=== PATIENT | female | born 1990 | race Caucasian/White ===

== ENCOUNTER 2017-05-17 17:18 | Emergency (ER) | payer SELFPAY ==
[~2017-05-17] VITALS: Ht 162.6 cm; Wt 61.2 kg
[2017-05-17] MEDS ORDERED: IV NORMAL SALINE 1000ML BAG 1,000 ML IV SCH (17:48)
--- NOTE | 2017-05-17 17:57 | PHYS DOC ---
Past Medical History Past Medical History: Other Additional Past Medical Histor: heroin abuse Past Surgical History: Other Additional Past Surgical Histo: "double hernia" repair as a baby Alcohol Use: None Drug Use: Heroin Social History Narrative: "clean for three months." Adult General Chief Complaint Chief Complaint: NAUSEA/VOMITING/DIARRHA HPI HPI Patient is a 27 year old female who presents with complaint of nausea, vomiting , and headache. Patient states that she has been having symptoms over the past 5 days after starting on Suboxone therapy. Patient has history of heroin abuse and has been off of heroin over the past month. The patient has been following with Dr. Contreras who started the patient on Suboxone therapy to continue therapy to refrain from heroin abuse. Patient states that she has not been tolerating this medication as it has been causing her to have numerous episodes of vomiting. Patient states she is unable to tolerate oral intake at this time due to her symptoms. Patient came to the emergency department for further treatment of her symptoms. Patient denies any localizing pain in her abdomen or chest at this time. Review of Systems Review of Systems Constitutional: Denies fever or chills [] Eyes: Denies change in visual acuity, redness, or eye pain [] HENT: Denies nasal congestion or sore throat [] Respiratory: Denies cough or shortness of breath [] Cardiovascular: Denies chest pain or edema [] GI: Nausea, vomiting, denies abdominal pain, bloody stools or diarrhea [] : Denies dysuria or hematuria [] Musculoskeletal: Denies back pain or joint pain [] Integument: Denies rash or skin lesions [] Neurologic: Headache, denies focal weakness or sensory changes [] Current Medications Current Medications Current Medications Medications (Trade) Dose Ordered Sig/Ramona Start Time Stop Time Status Last Admin Dose Admin Diphenhydramine HCl (Benadryl) 25 mg 1X ONCE 05/17/17 18:00 05/17/17 18:01 DC 05/17/17 18:10 25 MG Famotidine (Pepcid) 20 mg 1X ONCE 05/17/17 18:00 05/17/17 18:01 DC 05/17/17 18:10 20 MG Metoclopramide HCl (Reglan) 10 mg 1X ONCE 05/17/17 18:00 05/17/17 18:01 DC 05/17/17 18:10 10 MG Ondansetron HCl (Zofran) 4 mg 1X ONCE 05/17/17 18:00 05/17/17 18:01 DC 05/17/17 18:10 4 MG Sodium Chloride 1,000 ml @ 1,000 mls/hr Q1H 05/17/17 17:48 05/17/17 18:47 DC 05/17/17 18:09 1,000 MLS/HR Allergies Allergies Allergies Coded Allergies Type Severity Reaction Last Updated Verified No Known Drug Allergies 05/17/17 No Physical Exam Physical Exam Constitutional: Alert, afebrile, appears ill. [] HENT: Normocephalic, atraumatic, bilateral external ears normal, oropharynx dry , no oral exudates, nose normal. [] Eyes: PERRLA, EOMI, conjunctiva normal, no discharge. [] Neck: Normal range of motion, no tenderness, supple, no stridor. [] Cardiovascular:Heart rate regular rhythm, no murmur [] Lungs & Thorax: Bilateral breath sounds clear to auscultation [] Abdomen: Bowel sounds normal, soft, no tenderness, no masses, no pulsatile masses. [] Skin: Warm, dry, no erythema, no rash. [] Back: No tenderness, no CVA tenderness. [] Extremities: No tenderness, no cyanosis, no clubbing, ROM intact, no edema. [] Neurologic: Alert and oriented X 3, normal motor function, normal sensory function, no focal deficits noted. [] Current Patient Data Vital Signs Vital Signs Date Time Temp Pulse Resp B/P (MAP) Pulse Ox O2 Delivery O2 Flow Rate FiO2 05/17/17 18:17 56 18 102/58 (73) 98 Room Air 05/17/17 17:20 98.3 98.3 Lab Values Laboratory Tests Test 05/17/17 17:45 White Blood Count 8.3 x10^3/uL (4.0-11.0) Red Blood Count 4.45 x10^6/uL (3.50-5.40) Hemoglobin 14.0 g/dL (12.0-15.5) Hematocrit 41.2 % (36.0-47.0) Mean Corpuscular Volume 93 fL (79-100) Mean Corpuscular Hemoglobin 32 pg (25-35) Mean Corpuscular Hemoglobin Concent 34 g/dL (31-37) Red Cell Distribution Width 12.3 % (11.5-14.5) Platelet Count 245 x10^3/uL (140-400) Neutrophils (%) (Auto) 63 % (31-73) Lymphocytes (%) (Auto) 30 % (24-48) Monocytes (%) (Auto) 5 % (0-9) Eosinophils (%) (Auto) 2 % (0-3) Basophils (%) (Auto) 0 % (0-3) Neutrophils # (Auto) 5.2 x10^3uL (1.8-7.7) Lymphocytes # (Auto) 2.5 x10^3/uL (1.0-4.8) Monocytes # (Auto) 0.5 x10^3/uL (0.0-1.1) Eosinophils # (Auto) 0.1 x10^3/uL (0.0-0.7) Basophils # (Auto) 0.0 x10^3/uL (0.0-0.2) Urine Color Skylar Urine Clarity Clear Urine pH 5.5 Urine Specific [place] 1.020 Urine Protein Negative mg/dL (NEG-TRACE) Urine Glucose (UA) Negative mg/dL (NEG) Urine Ketones (Stick) 15 mg/dL (NEG) Urine Blood Moderate (NEG) Urine Nitrite Negative (NEG) Urine Bilirubin Small (NEG) Urine Urobilinogen Dipstick 0.2 mg/dL (0.2 mg/dL) Urine Leukocyte Esterase Trace (NEG) Urine RBC 1-2 /HPF (0-2) Urine WBC Occ /HPF (0-4) Urine Squamous Epithelial Cells Occ /LPF Urine Bacteria Few /HPF (0-FEW) Urine Mucus Mod /LPF Urine Test Negative (NEG) Sodium Level 139 mmol/L (136-145) Potassium Level 4.2 mmol/L (3.5-5.1) Chloride Level 101 mmol/L (98-107) Carbon Dioxide Level 29 mmol/L (21-32) Anion Gap 9 (6-14) Blood Urea Nitrogen 9 mg/dL (7-20) Creatinine 0.5 mg/dL (0.6-1.0) L Estimated GFR (Cockcroft-Gault) 149.1 BUN/Creatinine Ratio 18 (6-20) Glucose Level 91 mg/dL (70-99) Calcium Level 9.2 mg/dL (8.5-10.1) Total Bilirubin 0.4 mg/dL (0.2-1.0) Aspartate Amino Transferase (AST) 46 U/L (15-37) H Alanine Aminotransferase (ALT) 49 U/L (14-59) Alkaline Phosphatase 47 U/L (46-116) Total Protein 8.1 g/dL (6.4-8.2) Albumin 4.1 g/dL (3.4-5.0) Albumin/Globulin Ratio 1.0 (1.0-1.7) Lipase 75 U/L (73-393) Laboratory Tests 05/17/17 17:45 Laboratory Tests 05/17/17 17:45 EKG EKG Initial rhythm strip interpreted by me: Heart rate 77, sinus rhythm, no ectopy [ ] Radiology/Procedures Radiology/Procedures Not performed [] Course & Med Decision Making Course & Med Decision Making Pertinent Labs and Imaging studies reviewed. (See chart for details) The patient started on IV fluids, Zofran, Reglan, Pepcid, and Benadryl. On reevaluation, patient's symptoms have improved at this time. I spoke with patient's physician, Dr. Contreras, who stated that the patient to discontinue use of Suboxone at this time. The patient has an appointment with Dr. Contreras in 2 days. The patient was recommended to follow-up with Dr. Contreras as scheduled to discuss further treatment options. Advised return emergency department for any worsening symptoms. Patient voiced understanding and in agreement with treatment plan. Dragon Disclaimer Dragon Disclaimer This electronic medical record was generated, in whole or in part, using a voice recognition dictation system. Departure Departure Impression: Primary Impression: Nausea and vomiting Additional Impressions: Dehydration Adverse drug reaction Disposition: 01 HOME, SELF-CARE Condition: IMPROVED Patient Instructions: Dehydration, Adult, Drug Reaction, GI Intolerance, Nausea and Vomiting Additional Instructions: Follow-up with Dr. Contreras in 2 days as scheduled. You may discontinue use of Suboxone if you wish until you have followed up with Dr. Contreras. Return to the emergency department for any worsening symptoms. Scripts Famotidine (PEPCID) 20 Mg Tablet 20 MG PO BID, #30 TAB Prov: GUERRERO MOBLEY MD 05/17/17 Ondansetron (ZOFRAN ODT) 4 Mg Tab.rapdis 1 TAB SL Q8HRS Y for NAUSEA/VOMITING, #15 TAB Prov: GUERRERO MOBLEY MD 05/17/17 Problem Qualifiers Primary Impression: Nausea and vomiting Vomiting type: unspecified Vomiting Intractability: non-intractable Qualified Codes: R11.2 - Nausea with vomiting, unspecified Additional Impressions: Adverse drug reaction Encounter type: initial encounter Qualified Codes: T88.7XXA - Unspecified adverse effect of drug or medicament, initial encounter GUERRERO MOBLEY MD May 17, 2017 17:56
[2017-05-17] MEDS ORDERED: ONDANSETRON PF 4 MG/2 ML VIAL. IV ONE (18:00)
[2017-05-17] MEDS ORDERED: diphenhydrAMINE 50 MG/ML VIAL IVP ONE (18:00)
[2017-05-17] MEDS ORDERED: FAMOTIDINE 20 MG/2 ML VIAL IVP ONE (18:00)
[2017-05-17] MEDS ORDERED: METOCLOPRAMIDE HCL 10 MG/2 ML VIAL. IV ONE (18:00)
[2017-05-17 18:04] LABS: BASO % 0 % (0-3); EOS % 2 % (0-3); HEMATOCRIT 41.2 % (36.0-47.0); LYMPH # 2.5 x10^3/uL (1.0-4.8); LYMPH % 30 % (24-48); MEAN CORPUSCULAR HEMOGLOBIN 32 pg (25-35); MEAN CORPUSCULAR HGB CONC 34 g/dL (31-37); MEAN CORPUSCULAR VOLUME 93 fL (79-100); MONO % 5 % (0-9); NEUT % 63 % (31-73); PLATELET COUNT 245 x10^3/uL (140-400); RED BLOOD COUNT 4.45 x10^6/uL (3.50-5.40); RED CELL DISTRIBUTION WIDTH 12.3 % (11.5-14.5); WHITE BLOOD COUNT 8.3 x10^3/uL (4.0-11.0)
[2017-05-17 18:05] LABS: BILIRUBIN,URINE SMALL (NEG); GLUCOSE,URINE NEGATIVE (NEG); NITRITE,URINE NEGATIVE (NEG); PH,URINE 5.5; PROTEIN,URINE NEGATIVE (NEG-TRACE); UROBILINOGEN,URINE 0.2 mg/dL (0.2 mg/dL)
[2017-05-17 18:22] LABS: CALCIUM 9.2 mg/dL (8.5-10.1); CREATININE 0.5 mg/dL (0.6-1.0); GFR 149.1; POTASSIUM 4.2 mmol/L (3.5-5.1); WBC,URINE OCC /HPF (0-4)
[2017-05-17 18:23] LABS: BACTERIA,URINE FEW /HPF (0-FEW); SQUAMOUS EPITHELIAL CELL,UR OCC /LPF
[2017-05-17 18:29] LABS: ALBUMIN 4.1 g/dL (3.4-5.0); TOTAL BILIRUBIN 0.4 mg/dL (0.2-1.0); TOTAL PROTEIN 8.1 g/dL (6.4-8.2)
[2017-05-17 18:39] LABS: NEG OBC UR NEG; POS OBC UR POS
[2017-05-17] MEDS ORDERED: ONDA4TAB10 SL (18:45)
[2017-05-17] MEDS ORDERED: FAMO-63 PO (18:45)
[2017-05-17 18:48] VITALS: BP 93/54
== END 2017-05-17 19:03 | disposition home or self-care (01) ==
LOC: ER 17:18
DX: T40.605A Adverse effect of unspecified narcotics, initial encounter (principal); R11.2 Nausea with vomiting, unspecified; E86.0 Dehydration; R51 Headache; Y92.89 Other specified places as the place of occurrence of the external cause
CPT/HCPCS: 36415; 80053; 81001; 81025; 83690; 85027; 96361; 96374; 96375; 99284; J1200; J2405; J2765; J7030; S0028

== ENCOUNTER 2017-12-20 16:05 | Emergency (ER) | payer SELFPAY ==
[2017-12-20 17:55] LABS: ADD MAN DIFF? NO
[2017-12-20 17:59] LABS: BASO % 0 % (0-3); EOS % 1 % (0-3); HEMATOCRIT 39.4 % (36.0-47.0); HEMOGLOBIN 13.6 g/dL (12.0-15.5); LYMPH # 0.9 x10^3/uL (1.0-4.8); LYMPH % 11 % (24-48); MEAN CORPUSCULAR HEMOGLOBIN 31 pg (25-35); MEAN CORPUSCULAR HGB CONC 35 g/dL (31-37); MEAN CORPUSCULAR VOLUME 89 fL (79-100); MONO # 0.4 x10^3/uL (0.0-1.1); MONO % 5 % (0-9); NEUT # 6.4 x10^3uL (1.8-7.7); NEUT % 83 % (31-73); PLATELET COUNT 222 x10^3/uL (140-400); RED BLOOD COUNT 4.42 x10^6/uL (3.50-5.40); RED CELL DISTRIBUTION WIDTH 12.9 % (11.5-14.5); WHITE BLOOD COUNT 7.7 x10^3/uL (4.0-11.0)
[2017-12-20 18:03] LABS: INFLUENZA A PATIENT NEGATIVE (NEGATIVE); INFLUENZA B PATIENT NEGATIVE (NEGATIVE); OBC FLU VALID
[2017-12-20 18:07] LABS: ANION GAP 6 (6-14); BLOOD UREA NITROGEN 16 mg/dL (7-20); BUN/CREATININE RATIO 32 (6-20); CALCIUM 8.1 mg/dL (8.5-10.1); CARBON DIOXIDE 28 mmol/L (21-32); CHLORIDE 102 mmol/L (98-107); CREATININE 0.5 mg/dL (0.6-1.0); GFR 149.1; GLUCOSE 101 mg/dL (70-99); POTASSIUM 3.7 mmol/L (3.5-5.1); SODIUM 136 mmol/L (136-145)
[2017-12-20 18:12] LABS: ALBUMIN 3.8 g/dL (3.4-5.0); ALBUMIN/GLOBULIN RATIO 1.1 (1.0-1.7); ALK PHOS 43 U/L (46-116); ALT (SGPT) 38 U/L (14-59); AST (SGOT) 20 U/L (15-37); TOTAL BILIRUBIN 0.3 mg/dL (0.2-1.0); TOTAL PROTEIN 7.2 g/dL (6.4-8.2)
[2017-12-20] MEDS: IV NORMAL SALINE 1000ML BAG 1,000 ML IV ×4 (18:18→18:19)
[2017-12-20] MEDS: KETOROLAC 15 MG/ML VIAL. IV ×2 (18:20)
[2017-12-20] MEDS: ONDANSETRON PF 4 MG/2 ML VIAL. IV ×2 (18:20)
[2017-12-20 20:09] LABS: BILIRUBIN,URINE NEGATIVE (NEG); CLARITY,URINE CLEAR; COLOR,URINE YELLOW; GLUCOSE,URINE NEGATIVE (NEG); NITRITE,URINE NEGATIVE (NEG); PH,URINE 5.5; PROTEIN,URINE NEGATIVE (NEG-TRACE); UROBILINOGEN,URINE 0.2 mg/dL (0.2 mg/dL)
[2017-12-20 20:19] LABS: BACTERIA,URINE FEW /HPF (0-FEW); RBC,URINE 0 /HPF (0-2); SQUAMOUS EPITHELIAL CELL,UR MOD /LPF; WBC,URINE OCC /HPF (0-4)
[2017-12-21 07:50] LABS: URINE HCG POC HCG NEGATIVE (Negative)
== END 2017-12-20 20:40 | disposition home or self-care (01) ==
LOC: ER 16:05
DX: E86.0 Dehydration (principal); K52.9 Noninfective gastroenteritis and colitis, unspecified; I10 Essential (primary) hypertension; E11.9 Type 2 diabetes mellitus without complications; F11.10 Opioid abuse, uncomplicated; Z88.8 Allergy status to other drugs, medicaments and biological substances
CPT/HCPCS: 36415; 80053; 81001; 81025; 85025; 87804; 87804-59; 96361; 96374; 96375; 99284-25; J1885; J2405; J7030

== ENCOUNTER 2018-06-30 17:58 | Emergency (ER) | payer OTHER ==
[2017-12-20 20:19] VITALS: BP 96/59
[~2018-06-30] VITALS: Ht 162.6 cm; Wt 67.1 kg
[~2018-06-30 17:58] MED LIST: FAMO-63 PO; ONDA4TAB10 SL
[2018-06-30] MEDS ORDERED: BUDE8.43 NS (18:48)
--- NOTE | 2018-06-30 18:48 | PHYS DOC ---
Past Medical History Past Medical History: Other Additional Past Medical Histor: former heroin user Past Surgical History: Other Additional Past Surgical Histo: "double hernia" repair as a baby Alcohol Use: None Drug Use: Heroin Social History Narrative: FORMER HEROIN USER Adult General Chief Complaint Chief Complaint: FACE PAIN [facility] HPI Patient is a 28 year old [f__sex] who presents with [] Review of Systems Review of Systems Constitutional: Denies fever or chills [] Eyes: Denies change in visual acuity, redness, or eye pain [] HENT: Denies nasal congestion or sore throat [] Respiratory: Denies cough or shortness of breath [] Cardiovascular: No additional information not addressed in HPI [] GI: Denies abdominal pain, nausea, vomiting, bloody stools or diarrhea [] : Denies dysuria or hematuria [] Musculoskeletal: Denies back pain or joint pain [] Integument: Denies rash or skin lesions [] Neurologic: Denies headache, focal weakness or sensory changes [] Endocrine: Denies polyuria or polydipsia [] All other systems were reviewed and found to be within normal limits, except as documented in this note. Allergies Allergies Allergies Coded Allergies Type Severity Reaction Last Updated Verified naloxone Allergy Mild Nausea 12/20/17 Yes Physical Exam Physical Exam Constitutional: Well developed, well nourished, no acute distress, non-toxic appearance. [] HENT: Normocephalic, atraumatic, bilateral external ears normal, oropharynx moist, no oral exudates, nose normal. [] Eyes: PERRLA, EOMI, conjunctiva normal, no discharge. [] Neck: Normal range of motion, no tenderness, supple, no stridor. [] Cardiovascular:Heart rate regular rhythm, no murmur [] Lungs & Thorax: Bilateral breath sounds clear to auscultation [] Abdomen: Bowel sounds normal, soft, no tenderness, no masses, no pulsatile masses. [] Skin: Warm, dry, no erythema, no rash. [] Back: No tenderness, no CVA tenderness. [] Extremities: No tenderness, no cyanosis, no clubbing, ROM intact, no edema. [] Neurologic: Alert and oriented X 3, normal motor function, normal sensory function, no focal deficits noted. [] Psychologic: Affect normal, judgement normal, mood normal. [] Current Patient Data Vital Signs Vital Signs Date Time Temp Pulse Resp B/P (MAP) Pulse Ox O2 Delivery O2 Flow Rate FiO2 06/30/18 18:23 98.7 88 18 97/60 (72) 99 Room Air 98.7 EKG EKG [] Radiology/Procedures Radiology/Procedures [] Course & Med Decision Making Course & Med Decision Making Pertinent Labs and Imaging studies reviewed. (See chart for details) [] Dragon Disclaimer Dragon Disclaimer This electronic medical record was generated, in whole or in part, using a voice recognition dictation system. Departure Departure Impression: Primary Impression: Allergic rhinitis Additional Impression: Nasopharyngitis acute Disposition: HOME, SELF-CARE Condition: STABLE Referrals: NO PCP (PCP) Patient Instructions: Allergic Rhinitis Additional Instructions: Fill prescription and use as directed. Increase clear fluids, avoid dairy products as they thicken mucus secretions. Avoid exposure to airway irritants such as smoke, perfumes, pollen, dust, and animal dander. Follow-up with your primary care doctor in 1-2 days. Return to the emergency room if her symptoms worsen. Scripts Budesonide (Rhinocort Allergy) 8.43 Ml [place].pump 1 SPRAY NS DAILY, #1 BOTTLE 0 Refills 1-2 sprays each nare daily Prov: MERISSA BARAJAS LINSEED OIL ORDER FILLER 06/30/18 Problem Qualifiers Primary Impression: Allergic rhinitis Allergic rhinitis trigger: unspecified Allergic rhinitis seasonality: unspecified Qualified Codes: J30.9 - Allergic rhinitis, unspecified MERISSA BARAJAS [employer]ED [employer]IL ORDER FILLER Jun 30, 2018 18:48
== END 2018-06-30 18:51 | disposition home or self-care (01) ==
LOC: ER 17:58
DX: O99.512 Diseases of the respiratory system complicating pregnancy, second trimester (principal); J30.9 Allergic rhinitis, unspecified; J00 Acute nasopharyngitis [common cold]; R51 Headache; Z3A.19 19 weeks gestation of pregnancy; Z88.8 Allergy status to other drugs, medicaments and biological substances
CPT/HCPCS: 99282

== ENCOUNTER 2018-09-17 22:28 | Observation (INO) | payer OTHER ==
[~2018-09-17] VITALS: Ht 162.6 cm; Wt 70.3 kg
[~2018-09-17 22:28] MED LIST changes: +BUDE8.43 NS
[2018-09-17 23:26] LABS: BILIRUBIN,URINE SMALL (NEG); CLARITY,URINE TURBID; COLOR,URINE AMBER; NITRITE,URINE POSITIVE (NEG); PROTEIN,URINE 100 mg/dL (NEG-TRACE)
[2018-09-17 23:31] LABS: BACTERIA,URINE MANY /HPF (0-FEW); RBC,URINE 0 /HPF (0-2); SQUAMOUS EPITHELIAL CELL,UR FEW /LPF; WBC,URINE TNTC /HPF (0-4)
[2018-09-17] MEDS ORDERED: IV RINGERS,LACTATED 1000ML 1,000 ML IV PRN (23:45)
[2018-09-17] MEDS ORDERED: MAG HYDROX/ALUMINUM HYD/SIMETH 30 ML ORAL.SUSP PO PRN (23:45)
[2018-09-17 23:52] LABS: BARBITURATES NEG (NEG); BENZODIAZEPINES NEG (NEG); CANNABINOIDS NEG (NEG); COCAINE NEG (NEG); METHADONE NEG (NEG); OPIATES POS (NEG); PHENCYCLIDINE NEG (NEG)
[2018-09-17 23:55] LABS: AMPHETAMINE/METHAMPHETAMINE POS (NEG)
[2018-09-18] MEDS ORDERED: IV NORMAL SALINE 1000ML BAG 1,000 ML IV SCH (00:47)
[2018-09-18] MEDS ORDERED: cefTRIAXone IV Push 1 GM VIAL. IVP SCH (01:00)
[2018-09-18] MEDS ORDERED: ONDANSETRON PF 4 MG/2 ML VIAL. IV PRN ×2 (01:00→09:45)
[2018-09-18] MEDS ORDERED: ACETAMINOPHEN 325 MG TABLET. PO PRN ×2 (01:00→09:45)
--- NOTE | 2018-09-18 01:24 | PHYS DOC ---
Past Medical History Past Medical History: No Pertinent History, Other Additional Past Medical Histor: former heroin user Past Surgical History: Other Additional Past Surgical Histo: "double hernia" repair as a baby Alcohol Use: None Drug Use: Heroin, Methamphetamine Adult General Chief Complaint Chief Complaint: MULTIPLE COMPLAINTS [facility] Patient is a 28 year old female who presents with complaints of bilateral lower extremity swelling in . The patient is 7 months . The patient also has a rash over her face. She thinks that maybe she and her significant other were exposed to something because they have identical rashes. She denies abdominal pain, vaginal bleeding or discharge. She denies fever. She states that she has been receiving her obstetric care from [facility] with Dr. Nuno. Review of Systems Review of Systems Constitutional: Denies fever or chills [] Eyes: Denies change in visual acuity, redness, or eye pain [] HENT: Denies nasal congestion or sore throat [] Respiratory: Denies cough or shortness of breath [] Cardiovascular: No additional information not addressed in [facility] [] GI: Denies abdominal pain, nausea, vomiting, bloody stools or diarrhea [] : Denies dysuria or hematuria [] Musculoskeletal: See history of present illness Integument: See history of present illness Neurologic: Denies headache, focal weakness or sensory changes [] Endocrine: Denies polyuria or polydipsia [] All other systems were reviewed and found to be within normal limits, except as documented in this note. Allergies Allergies Allergies Coded Allergies Type Severity Reaction Last Updated Verified naloxone Allergy Mild Nausea 12/20/17 Yes Physical Exam Physical Exam Constitutional: Well developed, well nourished, no acute distress, non-toxic appearance. [] Eyes: PERRLA, EOMI, conjunctiva normal, no discharge. [] Neck: Normal range of motion, no tenderness, supple, no stridor. [] Cardiovascular:Heart rate regular rhythm, no murmur [] Lungs & Thorax: Bilateral breath sounds clear to auscultation [] Abdomen: Bowel sounds normal, soft, no tenderness, no masses, no pulsatile masses. [] Skin: There is a rash with papules scattered across the patient's face in various stages of healing, possible pickings Back: No tenderness, no CVA tenderness. [] Extremities: No tenderness, no cyanosis, no clubbing, ROM intact, no edema. [] Neurologic: Alert and oriented X 3, normal motor function, normal sensory function, no focal deficits noted. [] Psychologic: Affect normal, judgement normal, mood normal. [] Current Patient Data Vital Signs Vital Signs Date Time Temp Pulse Resp B/P (MAP) Pulse Ox O2 Delivery O2 Flow Rate FiO2 09/17/18 23:31 98.2 88 18 117/60 (79) 98 Room Air 98.2 Lab Values Laboratory Tests Test 09/17/18 22:45 09/17/18 22:55 Urine Collection Type Unknown Urine Color Skylar Urine Clarity Turbid Urine pH 6.0 Urine Specific [place] 1.020 Urine Protein 100 mg/dL (NEG-TRACE) Urine Glucose (UA) Negative mg/dL (NEG) Urine Ketones (Stick) 40 mg/dL (NEG) Urine Blood Moderate (NEG) Urine Nitrite Positive (NEG) Urine Bilirubin Small (NEG) Urine Urobilinogen Dipstick 1.0 mg/dL (0.2 mg/dL) Urine Leukocyte Esterase Large (NEG) Urine RBC 0 /HPF (0-2) Urine WBC Tntc /HPF (0-4) Urine Squamous Epithelial Cells Few /LPF Urine Bacteria Many /HPF (0-FEW) Urine Mucus Mod /LPF Urine Opiates Screen Pos (NEG) Urine Methadone Screen Neg (NEG) Urine Barbiturates Neg (NEG) Urine Phencyclidine Screen Neg (NEG) Urine Amphetamine/Methamphetamine Pos (NEG) Urine Benzodiazepines Screen Neg (NEG) Urine Cocaine Screen Neg (NEG) Urine Cannabinoids Screen Neg (NEG) Urine Ethyl Alcohol Neg (NEG) POC Urine HCG, Qualitative Hcg positive (Negative) EKG EKG [] Radiology/Procedures Radiology/Procedures [] Course & Med Decision Making Course & Med Decision Making Pertinent Labs and Imaging studies reviewed. (See chart for details) []The patient was evaluated by labor and delivery in the emergency department and the fetus is active with good heart tones. The patient is very dehydrated with a large UTI. She also is positive for methamphetamine abuse as well as opioid ingestion. The patient will be admitted to the hospital for further treatment and evaluation. Dr. Beltran has been consulted in her care. She will be admitted to Dr. Murillo's service. This patient has been handed over to Dr. Quintana in the emergency department for continued evaluation and placement. Dragon Disclaimer Dragon Disclaimer This electronic medical record was generated, in whole or in part, using a voice recognition dictation system. Departure Departure Impression: Primary Impression: Bilateral lower extremity edema Additional Impressions: Dehydration Methamphetamine abuse Urinary tract infection Disposition: ADMITTED INPATIENT Admitting Physician: Helga Riley Condition: GUARDED Referrals: NO PCP (PCP) Problem Qualifiers JIMMY GAVIN APRN Sep 18, 2018 01:24
[2018-09-18 01:42] LABS: CREATININE ISTAT 0.4 mg/dL (0.5-1.4); HEMOGLOBIN ISTAT 8.5 g/dL (12-15); ION CA ISTAT 0.99 mmol/L (1.13-1.32); POTASSIUM ISTAT 3.7 mmol/L (3.5-5.0)
[2018-09-18 03:00] VITALS: BP 115/78
[2018-09-18 03:29] LABS: BASO % 0 % (0-3); EOS # 0.1 x10^3/uL (0.0-0.7); EOS % 1 % (0-3); HEMATOCRIT 28.9 % (36.0-47.0); HEMOGLOBIN 10.4 g/dL (12.0-15.5); LYMPH # 2.2 x10^3/uL (1.0-4.8); LYMPH % 29 % (24-48); MEAN CORPUSCULAR HEMOGLOBIN 33 pg (25-35); MEAN CORPUSCULAR HGB CONC 36 g/dL (31-37); MEAN CORPUSCULAR VOLUME 90 fL (79-100); MONO % 13 % (0-9); NEUT # 4.2 x10^3uL (1.8-7.7); NEUT % 57 % (31-73); PLATELET COUNT 296 x10^3/uL (140-400); RED BLOOD COUNT 3.22 x10^6/uL (3.50-5.40); RED CELL DISTRIBUTION WIDTH 12.3 % (11.5-14.5); WHITE BLOOD COUNT 7.4 x10^3/uL (4.0-11.0)
[2018-09-18 04:11] LABS: CALCIUM 8.3 mg/dL (8.5-10.1); CREATININE 0.5 mg/dL (0.6-1.0); POTASSIUM 3.2 mmol/L (3.5-5.1)
[2018-09-18 04:17] LABS: ALBUMIN 2.3 g/dL (3.4-5.0); ALBUMIN/GLOBULIN RATIO 0.6 (1.0-1.7); TOTAL BILIRUBIN 0.7 mg/dL (0.2-1.0); TOTAL PROTEIN 6.1 g/dL (6.4-8.2)
[2018-09-18] MEDS ORDERED: PREN1TAB58 PO (04:34)
[2018-09-18 07:00] VITALS: BP 102/54
[2018-09-18] MEDS ORDERED: DOCUSATE SODIUM 100 MG CAPSULE. PO PRN (09:45)
[2018-09-18] MEDS ORDERED: MORPHINE SULFATE 2 MG/ML VIAL. IV PRN (09:45)
[2018-09-18] MEDS ORDERED: traMADol 50 MG TABLET PO PRN (09:45)
[2018-09-18] MEDS ORDERED: POTASSIUM CHLORIDE 20 MEQ TABLET.ER. PO ONE (10:00)
[2018-09-18 11:07] VITALS: BP 104/52
--- NOTE | 2018-09-18 12:13 | RAD ---
Bilateral lower extremity venous duplex study 09/18/2018 10:47 AM Clinical History: Bilateral leg swelling and pain; Comparison: None available Technique: Using a combination of real time ultrasound imaging and color-flow and pulse Doppler imaging techniques along with graded compression and augmentation, duplex evaluation of the deep venous system of the both lower extremities was performed. Multiple images were obtained. Findings: There is no sonographic evidence of deep venous thrombosis involving the visualized deep venous structures of either lower extremity. Impression: No evidence of deep venous thrombosis involving either lower extremity Electronically signed by: Klaus Shaw MD (09/18/2018 12:10 PM) [id number]
--- NOTE | 2018-09-18 13:59 | PDOC1 ---
History and Physical Date of Admission Date of Admission 09/17/18 Identification/Chief Complaint Chief Complaint bl leg edema Source Source: Patient History of Present Illness History of Present Illness HPI Patient is a 28 year old female who presents with complaints of bilateral lower extremity swelling in . PT Is very sleepy when i saw her in the room. At begging she cannot tell me why she came to ER, saying her mother sent her here. Later admitted has severe bl leg edema which happened since 2ds ago. denies chest pain, sob. has OB dr. Nuno at [facility] for 7months , said saw him 2 weeks ago and was ok. + meth, said used it once 2 ds ago. Past Medical History Past Medical History none Past Surgical History Past Surgical History "double hernia" repair as a baby Family History Family History: Hypertension Social History Smoke: No Drugs: Heroin, Crystal meth Current Problem List Problem List Problems Medical Problems: (1) Methamphetamine abuse Status: Acute (2) Urinary tract infection Status: Acute Current Medications Current Medications Current Medications Medications (Trade) Dose Ordered Sig/Ramona Start Time Stop Time Status Last Admin Dose Admin Acetaminophen (Tylenol) 650 mg PRN Q6HRS PRN 09/18/18 09:45 Al Hydroxide/Mg Hydroxide (Mylanta Plus Xs) 15 ml PRN Q4HRS PRN 09/17/18 23:45 Ceftriaxone Sodium 1 gm/ Dextrose 50 ml @ 100 mls/hr Q24H 09/18/18 01:00 UNV Ceftriaxone Sodium (Rocephin) 1 gm Q24H 09/18/18 01:00 09/18/18 03:14 1 GM Docusate Sodium (Colace) 100 mg PRN DAILY PRN 09/18/18 09:45 Lactobacillus Rhamnosus (Culturelle) 1 cap BID 09/18/18 21:00 Morphine Sulfate (Morphine Sulfate) 2 mg PRN Q2HR PRN 09/18/18 09:45 Ondansetron HCl (Zofran) 4 mg PRN Q6HRS PRN 09/18/18 09:45 Potassium Chloride (Klor-Con) 40 meq 1X ONCE 09/18/18 10:00 09/18/18 10:01 DC Ringer's Solution 1,000 ml @ 125 mls/hr Q8H PRN 09/17/18 23:45 10/29/18 09:46 DC Sodium Chloride 1,000 ml @ 125 mls/hr Q8H 09/18/18 00:47 09/18/18 00:51 DC Tramadol HCl (Ultram) 50 mg PRN Q6HRS PRN 09/18/18 09:45 Allergies Allergies Allergies Coded Allergies Type Severity Reaction Last Updated Verified naloxone Allergy Mild Nausea 12/20/17 Yes ROS Review of System CONSTITUTIONAL: No fever or chills EYES: No recent changes SKIN: No rash or itching CARDIOVASCULAR: No chest pain, syncope, palpitations, or edema RESPIRATORY: No SOB or cough GASTROINTESTINAL: No nausea, vomiting or abdominal pain NEUROLOGICAL: No headaches or weakness ENDOCRINE: No cold or heat intolerance GENITOURINARY: No urgency or frequency of urination MUSCULOSKELETAL: No back pain or joint pain LYMPHATICS: No enlarged lymph nodes PSYCHIATRIC: No anxiety or depression Physical Exam Physical Exam GEN.: No apparent distress. Alert and oriented. very sleepy. HEENT: Head is normocephalic, atraumatic NECK: Supple. LUNGS: Clear to auscultation. HEART: RRR, S1, S2 present. Peripheral pulses intact ABDOMEN: Soft, nontender. Positive bowel sounds. EXTREMITIES: Without any cyanosis. bl leg 2+ edema, non pitting NEUROLOGIC: Normal speech, normal tone PSYCHIATRIC: Normal affect, normal mood. SKIN: No ulcerations Vitals Vitals Vital Signs Date Time Temp Pulse Resp B/P (MAP) Pulse Ox O2 Delivery O2 Flow Rate FiO2 09/18/18 11:07 99.1 91 18 104/52 (69) 95 Room Air 99.1 Labs Labs Laboratory Tests Test 09/17/18 22:45 09/17/18 22:55 09/18/18 01:35 09/18/18 03:17 Urine Collection Type Unknown Urine Color Skylar Urine Clarity Turbid Urine pH 6.0 Urine Specific [place] 1.020 Urine Protein 100 mg/dL (NEG-TRACE) Urine Glucose (UA) Negative mg/dL (NEG) Urine Ketones (Stick) 40 mg/dL (NEG) Urine Blood Moderate (NEG) Urine Nitrite Positive (NEG) Urine Bilirubin Small (NEG) Urine Urobilinogen Dipstick 1.0 mg/dL (0.2 mg/dL) Urine Leukocyte Esterase Large (NEG) Urine RBC 0 /HPF (0-2) Urine WBC Tntc /HPF (0-4) Urine Squamous Epithelial Cells Few /LPF Urine Bacteria Many /HPF (0-FEW) Urine Mucus Mod /LPF Urine Opiates Screen Pos (NEG) Urine Methadone Screen Neg (NEG) Urine Barbiturates Neg (NEG) Urine Phencyclidine Screen Neg (NEG) Urine Amphetamine/Methamphetamine Pos (NEG) Urine Benzodiazepines Screen Neg (NEG) Urine Cocaine Screen Neg (NEG) Urine Cannabinoids Screen Neg (NEG) Urine Ethyl Alcohol Neg (NEG) Bedside Urine HCG, Qualitative Hcg positive (Negative) Bedside Hemoglobin 8.5 g/dL (12-15) Bedside Hematocrit 25 % (36-40) Bedside Sodium 132 mmol/L (135-145) Bedside Potassium 3.7 mmol/L (3.5-5.0) Bedside Chloride 101 mmol/L (98-110) Bedside Total CO2 23 mmol/L (23-32) Anion Gap 13 mmol/L (6-14) 13 (6-14) Bedside Blood Urea Nitrogen 7 mg/dL (8-26) Bedside Creatinine 0.4 mg/dL (0.5-1.4) Glucose Level 89 mg/dL (70-99) 89 mg/dL (70-99) Bedside Ionized Calcium (Jose) 0.99 mmol/L (1.13-1.32) White Blood Count 7.4 x10^3/uL (4.0-11.0) Red Blood Count 3.22 x10^6/uL (3.50-5.40) Hemoglobin 10.4 g/dL (12.0-15.5) Hematocrit 28.9 % (36.0-47.0) Mean Corpuscular Volume 90 fL (79-100) Mean Corpuscular Hemoglobin 33 pg (25-35) Mean Corpuscular Hemoglobin Concent 36 g/dL (31-37) Red Cell Distribution Width 12.3 % (11.5-14.5) Platelet Count 296 x10^3/uL (140-400) Neutrophils (%) (Auto) 57 % (31-73) Lymphocytes (%) (Auto) 29 % (24-48) Monocytes (%) (Auto) 13 % (0-9) Eosinophils (%) (Auto) 1 % (0-3) Basophils (%) (Auto) 0 % (0-3) Neutrophils # (Auto) 4.2 x10^3uL (1.8-7.7) Lymphocytes # (Auto) 2.2 x10^3/uL (1.0-4.8) Monocytes # (Auto) 1.0 x10^3/uL (0.0-1.1) Eosinophils # (Auto) 0.1 x10^3/uL (0.0-0.7) Basophils # (Auto) 0.0 x10^3/uL (0.0-0.2) Maternal Serum HCG Beta Subunit 80871 mIU/mL (0-5) Sodium Level 136 mmol/L (136-145) Potassium Level 3.2 mmol/L (3.5-5.1) Chloride Level 100 mmol/L (98-107) Carbon Dioxide Level 23 mmol/L (21-32) Blood Urea Nitrogen 7 mg/dL (7-20) Creatinine 0.5 mg/dL (0.6-1.0) Estimated GFR (Cockcroft-Gault) 148.0 BUN/Creatinine Ratio 14 (6-20) Lactic Acid Level 0.3 mmol/L (0.4-2.0) Calcium Level 8.3 mg/dL (8.5-10.1) Total Bilirubin 0.7 mg/dL (0.2-1.0) Aspartate Amino Transf (AST/SGOT) 46 U/L (15-37) Alanine Aminotransferase (ALT/SGPT) 36 U/L (14-59) Alkaline Phosphatase 86 U/L (46-116) Total Protein 6.1 g/dL (6.4-8.2) Albumin 2.3 g/dL (3.4-5.0) Albumin/Globulin Ratio 0.6 (1.0-1.7) Laboratory Tests Test 09/17/18 22:45 09/17/18 22:55 09/18/18 01:35 09/18/18 03:17 Urine Collection Type Unknown Urine Color Skylar Urine Clarity Turbid Urine pH 6.0 Urine Specific [place] 1.020 Urine Protein 100 mg/dL (NEG-TRACE) Urine Glucose (UA) Negative mg/dL (NEG) Urine Ketones (Stick) 40 mg/dL (NEG) Urine Blood Moderate (NEG) Urine Nitrite Positive (NEG) Urine Bilirubin Small (NEG) Urine Urobilinogen Dipstick 1.0 mg/dL (0.2 mg/dL) Urine Leukocyte Esterase Large (NEG) Urine RBC 0 /HPF (0-2) Urine WBC Tntc /HPF (0-4) Urine Squamous Epithelial Cells Few /LPF Urine Bacteria Many /HPF (0-FEW) Urine Mucus Mod /LPF Urine Opiates Screen Pos (NEG) Urine Methadone Screen Neg (NEG) Urine Barbiturates Neg (NEG) Urine Phencyclidine Screen Neg (NEG) Urine Amphetamine/Methamphetamine Pos (NEG) Urine Benzodiazepines Screen Neg (NEG) Urine Cocaine Screen Neg (NEG) Urine Cannabinoids Screen Neg (NEG) Urine Ethyl Alcohol Neg (NEG) Bedside Urine HCG, Qualitative Hcg positive (Negative) Bedside Hemoglobin 8.5 g/dL (12-15) Bedside Hematocrit 25 % (36-40) Bedside Sodium 132 mmol/L (135-145) Bedside Potassium 3.7 mmol/L (3.5-5.0) Bedside Chloride 101 mmol/L (98-110) Bedside Total CO2 23 mmol/L (23-32) Anion Gap 13 mmol/L (6-14) 13 (6-14) Bedside Blood Urea Nitrogen 7 mg/dL (8-26) Bedside Creatinine 0.4 mg/dL (0.5-1.4) Glucose Level 89 mg/dL (70-99) 89 mg/dL (70-99) Bedside Ionized Calcium (Jose) 0.99 mmol/L (1.13-1.32) White Blood Count 7.4 x10^3/uL (4.0-11.0) Red Blood Count 3.22 x10^6/uL (3.50-5.40) Hemoglobin 10.4 g/dL (12.0-15.5) Hematocrit 28.9 % (36.0-47.0) Mean Corpuscular Volume 90 fL (79-100) Mean Corpuscular Hemoglobin 33 pg (25-35) Mean Corpuscular Hemoglobin Concent 36 g/dL (31-37) Red Cell Distribution Width 12.3 % (11.5-14.5) Platelet Count 296 x10^3/uL (140-400) Neutrophils (%) (Auto) 57 % (31-73) Lymphocytes (%) (Auto) 29 % (24-48) Monocytes (%) (Auto) 13 % (0-9) Eosinophils (%) (Auto) 1 % (0-3) Basophils (%) (Auto) 0 % (0-3) Neutrophils # (Auto) 4.2 x10^3uL (1.8-7.7) Lymphocytes # (Auto) 2.2 x10^3/uL (1.0-4.8) Monocytes # (Auto) 1.0 x10^3/uL (0.0-1.1) Eosinophils # (Auto) 0.1 x10^3/uL (0.0-0.7) Basophils # (Auto) 0.0 x10^3/uL (0.0-0.2) Maternal Serum HCG Beta Subunit 36980 mIU/mL (0-5) Sodium Level 136 mmol/L (136-145) Potassium Level 3.2 mmol/L (3.5-5.1) Chloride Level 100 mmol/L (98-107) Carbon Dioxide Level 23 mmol/L (21-32) Blood Urea Nitrogen 7 mg/dL (7-20) Creatinine 0.5 mg/dL (0.6-1.0) Estimated GFR (Cockcroft-Gault) 148.0 BUN/Creatinine Ratio 14 (6-20) Lactic Acid Level 0.3 mmol/L (0.4-2.0) Calcium Level 8.3 mg/dL (8.5-10.1) Total Bilirubin 0.7 mg/dL (0.2-1.0) Aspartate Amino Transf (AST/SGOT) 46 U/L (15-37) Alanine Aminotransferase (ALT/SGPT) 36 U/L (14-59) Alkaline Phosphatase 86 U/L (46-116) Total Protein 6.1 g/dL (6.4-8.2) Albumin 2.3 g/dL (3.4-5.0) Albumin/Globulin Ratio 0.6 (1.0-1.7) VTE Prophylaxis Ordered VTE Prophylaxis Devices: Yes VTE Pharmacological Prophylaxi: No Assessment/Plan Assessment/Plan bl leg edema 2/2 likely anemia with 7ms drug use with meth, heroin hypokalemia mild malnutrition plan: fu with ob check leg US neg for dvt check echo vit replete BERNARDINO CALDERON MD Sep 18, 2018 13:59
[2018-09-18] MEDS ORDERED: PRENATAL MULTIVITAMIN TABLET. PO SCH (14:30)
[2018-09-18 15:00] VITALS: BP 95/57
--- NOTE | 2018-09-18 15:23 | CARD ---
MR#: [id number] Date of Study: 09/18/2018 Ordering Physician: BERNARDINO VAZQUEZ, Referring Physician: LEYLA VERGARA Tech: Yulissa Leung [facility] APPROVED REPORT EXAM: Two-dimensional and M-mode echocardiogram with Doppler and color Doppler. Other Information Quality : Technically LimitedHR: 95bpm Rhythm : Irregular INDICATION Edema 2D DIMENSIONS RVDd2.4 (2.9-3.5cm)Left Atrium(2D)3.0 (1.6-4.0cm) IVSd0.7 (0.7-1.1cm)Aortic Root(2D)2.5 (2.0-3.7cm) LVDd4.4 (3.9-5.9cm)LVOT Diameter1.8 (1.8-2.4cm) PWd0.8 (0.7-1.1cm)IVSs0.9 (0.8-1.2cm) LVDs2.6 (2.5-4.0cm)FS (%) 39.7 % PWs1.0 (0.8-1.2cm)SV61.0 ml Aortic Valve AoV Peak Ari.174.2cm/sAoV VTI32.7cm AO Peak GR.12.1mmHgLVOT Peak Ari.152.2cm/s LVOT VTI 31.27cmAO Mean GR.6mmHg AUR[place]A (VMAX)1.94zi6BHJ (VTI)2.56cm2 Mitral Valve MV E Aemamvkw931.8cm/sMV DECEL QLNC834oa MV A Wepaylxo59.9cm/sMV IOP35yz E/A Ratio2.4MVA (PHT)3.27cm2 TDI E/Lateral E'6.7E/Medial E'9.8 Pulmonary Valve PV Peak Tnzjmeoi471.6cm/sPV Peak Grad.5mmHg Pulmonary Vein S1 Iucecdnz85.0cm/sD2 Ezmvkfpk17.4cm/s LEFT VENTRICLE The left ventricle is normal size. There is normal left ventricular wall thickness. The left ventricu lar systolic function is normal and the ejection fraction is within normal range. The Ejection Fracti on is 60-65%. There is normal LV segmental wall motion. The left ventricular diastolic function and f illing is normal for age. RIGHT VENTRICLE The right ventricle is normal size. There is normal right ventricular wall thickness. The right ventr icular systolic function is normal. ATRIA The left atrium size is normal. The right atrium size is normal. The interatrial septum is intact wit h no evidence for an atrial septal defect or patent foramen ovale as noted on 2-D or Doppler imaging. AORTIC VALVE The aortic valve is trileaflet. The aortic valve is normal in structure and function. Doppler and Col or Flow revealed no significant aortic regurgitation. There is no significant aortic valvular stenosi s. MITRAL VALVE The mitral valve is normal in structure and function. There is no evidence of mitral valve prolapse. There is no mitral valve stenosis. Doppler and Color-flow revealed trace mitral regurgitation. TRICUSPID VALVE The tricuspid valve is normal in structure and function. Doppler and Color Flow revealed no tricuspid valve regurgitation noted. There is no tricuspid valve prolapse or vegetation. There is no tricuspid valve stenosis. PULMONIC VALVE Not well visualized. GREAT VESSELS The aortic root is normal in size. PERICARDIAL EFFUSION There is no evidence of significant pericardial effusion. Critical Notification Critical Value: No <Conclusion> The left ventricle is normal size. The left ventricular systolic function is normal and the ejection fraction is within normal range. The Ejection Fraction is 60-65%. There is no significant aortic valvular stenosis. Doppler and Color Flow revealed no significant aortic regurgitation. Doppler and Color-flow revealed trace mitral regurgitation. Doppler and Color Flow revealed no tricuspid valve regurgitation noted. Signed by : Rosendo Viera MD Electronically Approved : 09/18/2018 15:22:57
--- NOTE | 2018-09-18 16:51 | PDOC2 ---
CONSULT Date of Consult Date of Consult DATE: 09/18/18 TIME: 16:46 Reason for Consult Reason for Consult: Referring Physician Referring Physician: Dr. Maravilla Identification/Chief Complaint Chief Complaint leg swelling and rash on face; current drug abuse Source Source: Chart review, Patient History of Present Illness Reason for Visit: 28 y/o @ 27 wks gestation with drug use during now has rash on face and LE edema. OB evaluation included NST that was normal for gestational age. She has established OB with Dr. Nuno and will f/u next week. She initially had nausea/vomiting but is now tolerating regular diet. She denies any H/A, CP, SOB, or abd pain. She also denies any LOF, VB or contractions. Family History Family History: Hypertension Social History No Drugs: Heroin, Crystal meth Current Problem List Problem List Problems Medical Problems: (1) Methamphetamine abuse Status: Acute (2) Urinary tract infection Status: Acute Current Medications Current Medications Current Medications Ringer's Solution 1,000 ml @ 125 mls/hr Q8H PRN IV hydration; Start 09/17/18 at 23:45; Stop 09/18/18 at 09:46; Status DC Al Hydroxide/Mg Hydroxide (Mylanta Plus Xs) 15 ml PRN Q4HRS PRN PO HEARTBURN / GAS; Start 09/17/18 at 23:45 Ondansetron HCl (Zofran) 4 mg PRN Q8HRS PRN IV NAUSEA/VOMITING 1ST CHOICE; Start 09/18/18 at 01:00; Stop 09/18/18 at 09:46; Status DC Sodium Chloride 1,000 ml @ 125 mls/hr Q8H IV ; Start 09/18/18 at 00:47; Stop 09/18/18 at 00:51; Status DC Acetaminophen (Tylenol) 650 mg PRN Q4HRS PRN PO FEVER; Start 09/18/18 at 01:00 ; Stop 09/18/18 at 09:46; Status DC Ceftriaxone Sodium 1 gm/ Dextrose 50 ml @ 100 mls/hr Q24H IV ; Start 09/18/18 at 01:00; Status UNV Ceftriaxone Sodium (Rocephin) 1 gm Q24H IVP Last administered on 09/18/18at 03: 14; Start 09/18/18 at 01:00 Acetaminophen (Tylenol) 650 mg PRN Q6HRS PRN PO FEVER; Start 09/18/18 at 09:45 Ondansetron HCl (Zofran) 4 mg PRN Q6HRS PRN IV NAUSEA/VOMITING; Start at 09:45 Morphine Sulfate (Morphine Sulfate) 2 mg PRN Q2HR PRN IV MODERATE TO SEVERE PAIN; Start 09/18/18 at 09:45 Tramadol HCl (Ultram) 50 mg PRN Q6HRS PRN PO MILD TO MODERATE PAIN; Start at 09:45 Docusate Sodium (Colace) 100 mg PRN DAILY PRN PO CONSTIPATION; Start 09/18/18 at 09:45 Potassium Chloride (Klor-Con) 40 meq 1X ONCE PO ; Start 09/18/18 at 10:00; Stop 09/18/18 at 10:01; Status DC Lactobacillus Rhamnosus (Culturelle) 1 cap BID PO ; Start 09/18/18 at 21:00 Multivit/ Folic Acid/Iron (Multivitamin ) 1 tab DAILY PO Last administered on 09/18/18at 16:35; Start 09/18/18 at 14:30 Active Scripts Active Reported Vitamins ( Vits W-Ca,Fe,Fa(<1MG)) 1 Each Tablet 1 Tab PO DAILY Allergies Allergies: Coded Allergies: naloxone (Verified Allergy, Mild, Nausea, 12/20/17) ROS General: YES: Fatigue, Malaise, Appetite; No: Chills, Night Sweats, Other PSYCHOLOGICAL ROS: YES: Anxiety; No: Behavioral Disorder, Concentration difficultie, Decreased libido, Depression, Disorientation, Hallucinations, Hostility, Irritablity, Memory difficulties, Mood Swings, Obsessive thoughts, Physical abuse, Sexual abuse, Sleep disturbances, Suicidal ideation, Other Eyes: No Blurry vision, No Decreased vision, No Double vision, No Dry eyes, No Excessive tearing, No Eye Pain, No Itchy Eyes, No Loss of vision, No Photophobia , No Scotomata, No Uses contacts, No Uses glasses, No Other HEENT: No: Heacaches, Visual Changes, Hearing change, Nasal congestion, Nasal discharge, Oral lesions, Sinus pain, Sore Throat, Epistaxis, Sneezing, Snoring, Tinnitus, Vertigo, Vocal changes, Other ALLERGY AND IMMUNOLOGY: No: Hives, Insect Bite Sensitivity, Itchy/Watery Eyes, Nasal Congestion, Post Nasal Drip, Seasonal Allergies, Other Hematological and Lymphatic: No: Bleeding Problems, Blood Clots, Blood Transfusions, Brusing, Night Sweats, Pallor, Swollen Lymph Nodes, Other ENDOCRINE: No: Breast Changes, Galactorrhea, Hair Pattern Changes, Hot Flashes , Malaise/lethargy, Mood Swings, Palpitations, Polydipsia/polyuria, Skin Changes , Temperature Intolerance, Unexpected Weight Changes, Other Breast: No New/Changing Breast Lumps, No Nipple changes, No Nipple discharge, No Other Respiratory: No: Cough, Hemoptysis, Orthopnea, Pleuritic Pain, Shortness of breath, SOB with excertion, Sputum Changes, Stridor, Tachypnea, Wheezing, Other Cardiovascular: No Chest Pain, No Palpitations, No Orthopnea, No Paroxysmal Noc. Dyspnea, No Edema, No Lt Headedness, No Other Gastrointestinal: No Nausea, No Vomiting, No Abdominal Pain, No Diarrhea, No Constipation, No Melena, No Hematochezia, No Other Genitourinary: No Dysuria, No Frequency, No Incontinence, No Hematuria, No Retention, No Discharge, No Urgency, No Pain, No Flank Pain, No Other, No , No , No , No , No , No , No Musculoskeletal: No Gait Disturbance, No Joint Pain, No Joint Stiffness, No Joint Swelling, No Muscle Pain, No Muscular Weakness, No Pain In:, No Swelling In:, No Other Physical Exam General: Alert, Oriented X3 HEENT: Atraumatic Lungs: Clear to auscultation Heart: Regular rate Abdomen: Normal bowel sounds, Soft, No tenderness, No masses Extremities: No edema Vitals VITALS Vital Signs Date Time Temp Pulse Resp B/P (MAP) Pulse Ox O2 Delivery O2 Flow Rate FiO2 09/18/18 15:00 99 18 95/57 (70) 96 Room Air 09/18/18 11:07 99.1 99.1 Labs Labs Laboratory Tests Test 09/17/18 22:45 09/17/18 22:55 09/18/18 01:35 09/18/18 03:17 Urine Collection Type Unknown Urine Color Skylar Urine Clarity Turbid Urine pH 6.0 Urine Specific [place] 1.020 Urine Protein 100 mg/dL (NEG-TRACE) Urine Glucose (UA) Negative mg/dL (NEG) Urine Ketones (Stick) 40 mg/dL (NEG) Urine Blood Moderate (NEG) Urine Nitrite Positive (NEG) Urine Bilirubin Small (NEG) Urine Urobilinogen Dipstick 1.0 mg/dL (0.2 mg/dL) Urine Leukocyte Esterase Large (NEG) Urine RBC 0 /HPF (0-2) Urine WBC Tntc /HPF (0-4) Urine Squamous Epithelial Cells Few /LPF Urine Bacteria Many /HPF (0-FEW) Urine Mucus Mod /LPF Urine Opiates Screen Pos (NEG) Urine Methadone Screen Neg (NEG) Urine Barbiturates Neg (NEG) Urine Phencyclidine Screen Neg (NEG) Urine Amphetamine/Methamphetamine Pos (NEG) Urine Benzodiazepines Screen Neg (NEG) Urine Cocaine Screen Neg (NEG) Urine Cannabinoids Screen Neg (NEG) Urine Ethyl Alcohol Neg (NEG) Bedside Urine HCG, Qualitative Hcg positive (Negative) Bedside Hemoglobin 8.5 g/dL (12-15) Bedside Hematocrit 25 % (36-40) Bedside Sodium 132 mmol/L (135-145) Bedside Potassium 3.7 mmol/L (3.5-5.0) Bedside Chloride 101 mmol/L (98-110) Bedside Total CO2 23 mmol/L (23-32) Anion Gap 13 mmol/L (6-14) 13 (6-14) Bedside Blood Urea Nitrogen 7 mg/dL (8-26) Bedside Creatinine 0.4 mg/dL (0.5-1.4) Glucose Level 89 mg/dL (70-99) 89 mg/dL (70-99) Bedside Ionized Calcium (Jose) 0.99 mmol/L (1.13-1.32) White Blood Count 7.4 x10^3/uL (4.0-11.0) Red Blood Count 3.22 x10^6/uL (3.50-5.40) Hemoglobin 10.4 g/dL (12.0-15.5) Hematocrit 28.9 % (36.0-47.0) Mean Corpuscular Volume 90 fL (79-100) Mean Corpuscular Hemoglobin 33 pg (25-35) Mean Corpuscular Hemoglobin Concent 36 g/dL (31-37) Red Cell Distribution Width 12.3 % (11.5-14.5) Platelet Count 296 x10^3/uL (140-400) Neutrophils (%) (Auto) 57 % (31-73) Lymphocytes (%) (Auto) 29 % (24-48) Monocytes (%) (Auto) 13 % (0-9) Eosinophils (%) (Auto) 1 % (0-3) Basophils (%) (Auto) 0 % (0-3) Neutrophils # (Auto) 4.2 x10^3uL (1.8-7.7) Lymphocytes # (Auto) 2.2 x10^3/uL (1.0-4.8) Monocytes # (Auto) 1.0 x10^3/uL (0.0-1.1) Eosinophils # (Auto) 0.1 x10^3/uL (0.0-0.7) Basophils # (Auto) 0.0 x10^3/uL (0.0-0.2) Maternal Serum HCG Beta Subunit 13557 mIU/mL (0-5) Sodium Level 136 mmol/L (136-145) Potassium Level 3.2 mmol/L (3.5-5.1) Chloride Level 100 mmol/L (98-107) Carbon Dioxide Level 23 mmol/L (21-32) Blood Urea Nitrogen 7 mg/dL (7-20) Creatinine 0.5 mg/dL (0.6-1.0) Estimated GFR (Cockcroft-Gault) 148.0 BUN/Creatinine Ratio 14 (6-20) Lactic Acid Level 0.3 mmol/L (0.4-2.0) Calcium Level 8.3 mg/dL (8.5-10.1) Total Bilirubin 0.7 mg/dL (0.2-1.0) Aspartate Amino Transf (AST/SGOT) 46 U/L (15-37) Alanine Aminotransferase (ALT/SGPT) 36 U/L (14-59) Alkaline Phosphatase 86 U/L (46-116) Total Protein 6.1 g/dL (6.4-8.2) Albumin 2.3 g/dL (3.4-5.0) Albumin/Globulin Ratio 0.6 (1.0-1.7) Laboratory Tests Test 09/17/18 22:45 09/17/18 22:55 09/18/18 01:35 09/18/18 03:17 Urine Collection Type Unknown Urine Color [place] Urine Clarity Turbid Urine pH 6.0 Urine Specific [place] 1.020 Urine Protein 100 mg/dL (NEG-TRACE) Urine Glucose (UA) Negative mg/dL (NEG) Urine Ketones (Stick) 40 mg/dL (NEG) Urine Blood Moderate (NEG) Urine Nitrite Positive (NEG) Urine Bilirubin Small (NEG) Urine Urobilinogen Dipstick 1.0 mg/dL (0.2 mg/dL) Urine Leukocyte Esterase Large (NEG) Urine RBC 0 /HPF (0-2) Urine WBC Tntc /HPF (0-4) Urine Squamous Epithelial Cells Few /LPF Urine Bacteria Many /HPF (0-FEW) Urine Mucus Mod /LPF Urine Opiates Screen Pos (NEG) Urine Methadone Screen Neg (NEG) Urine Barbiturates Neg (NEG) Urine Phencyclidine Screen Neg (NEG) Urine Amphetamine/Methamphetamine Pos (NEG) Urine Benzodiazepines Screen Neg (NEG) Urine Cocaine Screen Neg (NEG) Urine Cannabinoids Screen Neg (NEG) Urine Ethyl Alcohol Neg (NEG) Bedside Urine HCG, Qualitative Hcg positive (Negative) Bedside Hemoglobin 8.5 g/dL (12-15) Bedside Hematocrit 25 % (36-40) Bedside Sodium 132 mmol/L (135-145) Bedside Potassium 3.7 mmol/L (3.5-5.0) Bedside Chloride 101 mmol/L (98-110) Bedside Total CO2 23 mmol/L (23-32) Anion Gap 13 mmol/L (6-14) 13 (6-14) Bedside Blood Urea Nitrogen 7 mg/dL (8-26) Bedside Creatinine 0.4 mg/dL (0.5-1.4) Glucose Level 89 mg/dL (70-99) 89 mg/dL (70-99) Bedside Ionized Calcium (Jose) 0.99 mmol/L (1.13-1.32) White Blood Count 7.4 x10^3/uL (4.0-11.0) Red Blood Count 3.22 x10^6/uL (3.50-5.40) Hemoglobin 10.4 g/dL (12.0-15.5) Hematocrit 28.9 % (36.0-47.0) Mean Corpuscular Volume 90 fL (79-100) Mean Corpuscular Hemoglobin 33 pg (25-35) Mean Corpuscular Hemoglobin Concent 36 g/dL (31-37) Red Cell Distribution Width 12.3 % (11.5-14.5) Platelet Count 296 x10^3/uL (140-400) Neutrophils (%) (Auto) 57 % (31-73) Lymphocytes (%) (Auto) 29 % (24-48) Monocytes (%) (Auto) 13 % (0-9) Eosinophils (%) (Auto) 1 % (0-3) Basophils (%) (Auto) 0 % (0-3) Neutrophils # (Auto) 4.2 x10^3uL (1.8-7.7) Lymphocytes # (Auto) 2.2 x10^3/uL (1.0-4.8) Monocytes # (Auto) 1.0 x10^3/uL (0.0-1.1) Eosinophils # (Auto) 0.1 x10^3/uL (0.0-0.7) Basophils # (Auto) 0.0 x10^3/uL (0.0-0.2) Maternal Serum HCG Beta Subunit 68545 mIU/mL (0-5) Sodium Level 136 mmol/L (136-145) Potassium Level 3.2 mmol/L (3.5-5.1) Chloride Level 100 mmol/L (98-107) Carbon Dioxide Level 23 mmol/L (21-32) Blood Urea Nitrogen 7 mg/dL (7-20) Creatinine 0.5 mg/dL (0.6-1.0) Estimated GFR (Cockcroft-Gault) 148.0 BUN/Creatinine Ratio 14 (6-20) Lactic Acid Level 0.3 mmol/L (0.4-2.0) Calcium Level 8.3 mg/dL (8.5-10.1) Total Bilirubin 0.7 mg/dL (0.2-1.0) Aspartate Amino Transf (AST/SGOT) 46 U/L (15-37) Alanine Aminotransferase (ALT/SGPT) 36 U/L (14-59) Alkaline Phosphatase 86 U/L (46-116) Total Protein 6.1 g/dL (6.4-8.2) Albumin 2.3 g/dL (3.4-5.0) Albumin/Globulin Ratio 0.6 (1.0-1.7) Assessment/Plan Assessment/Plan A: 27 wks IUP Drug use during LE edema: improved UTI P: Recommend compression socks and benadryl for rash on face. She will f/u Dr. Nuno next week. Rx Bactrim BID x 3 days for UTI. Thank you for consult. DEB MAURICIO Jr, MD Sep 18, 2018 16:51
[2018-09-18] MEDS ORDERED: SULF1TAB24 PO ×3 (17:31→17:33)
--- NOTE | 2018-09-18 19:09 | PDOC3 ---
Discharge Summary [facility] Date of Admission: Sep 17, 2018 Discharge Date: Sep 18, 2018 Admitting Diagnosis bl leg edema 2/2 likely anemia with 7ms drug use with meth, heroin hypokalemia mild malnutrition UTI face skin rash Final Diagnosis CONSULTS dr. Galvan Brief Hospital Course Patient is a 28 year old female who presents with complaints of bilateral lower extremity swelling in . PT Is very sleepy when i saw her in the room. At begging she cannot tell me why she came to ER, saying her mother sent her here. Later admitted has severe bl leg edema which happened since 2ds ago. denies chest pain, sob. has OB dr. Nuno at [facility] for 7months , said saw him 2 weeks ago and was ok. + meth, said used it once 2 ds ago. US ruled out DVT, echo is basically normal. ob consulted, prescribed bactrimx 3ds fo uti. dc home. dc time 35min. Patient History: Patient reports no known family medical history. Disposition home CONDITION AT DISCHARGE: Improved Scheduled Vits W-Ca,Fe,Fa(<1MG) ( Vitamins), 1 TAB PO DAILY, (Reported) Sulfamethoxazole/Trimethoprim (Bactrim Ds Tablet), 1 TAB PO BID, (Reported) Sulfamethoxazole/Trimethoprim (Bactrim Ds Tablet), 1 TAB PO BID, (Reported) Sulfamethoxazole/Trimethoprim (Bactrim Ds Tablet), 1 TAB PO BID, (Reported) BERNARDINO VAZQUEZ MD Sep 18, 2018 19:09
[2018-09-18] MEDS ORDERED: LACTOBACILLUS RHAMNOSUS GG 1 CAPSULE. PO SCH (21:00)
== END 2018-09-18 17:49 | disposition home or self-care (01) ==
LOC: ER 22:28 → 3 SO LND 23:34 → 4 NORTH 09-18 02:03 → UNDODISOB 09-18 17:49
PROVIDERS: ADMIT Internal Medicine; ATTEND Specialist
DX: O12.02 Gestational edema, second trimester (principal); O21.2 Late vomiting of pregnancy; O23.42 Unspecified infection of urinary tract in pregnancy, second trimester; O25.12 Malnutrition in pregnancy, second trimester; O99.012 Anemia complicating pregnancy, second trimester; O99.282 Endocrine, nutritional and metabolic diseases complicating pregnancy, second trimester; O99.322 Drug use complicating pregnancy, second trimester; O26.892 Other specified pregnancy related conditions, second trimester; E86.0 Dehydration; E87.6 Hypokalemia; F11.90 Opioid use, unspecified, uncomplicated; F15.10 Other stimulant abuse, uncomplicated; Z3A.27 27 weeks gestation of pregnancy; Z82.49 Family history of ischemic heart disease and other diseases of the circulatory system; Z79.899 Other long term (current) drug therapy
CPT/HCPCS: 36415; 80047; 80053; 80307; 81001; 81025; 83605; 84702; 85025; 87086; 87186; 93306; 93970; 96374; 99285; G0378; J0696; G0379; G0479